=== PATIENT | male | born 1975 | race Caucasian/White ===

== ENCOUNTER 2023-05-26 08:40 | Emergency (ER) | payer BC ==
[2023-05-26] VITALS (7 sets, daily range): BP systolic 125–151; BP diastolic 71–82; PULSE 59–87; RESP 15–27; TEMP 98.5; O2SAT 100
[~2023-05-26] VITALS: Ht 177.8 cm; Wt 77.3 kg
[2023-05-26] MEDS ORDERED: ondansetron/PF 4mg/2ml inj IV PRN ×2 (09:20→11:35)
[2023-05-26] MEDS ORDERED: naloxone 0.4 mg/ml inj IV PRN (09:20)
[2023-05-26] MEDS ORDERED: PCA WASTE DOCUMENTATION 1 MG ML MC PRN (09:20)
[2023-05-26] MEDS ORDERED: HYDROcodone/acetaminophen 10/325mg tab PO PRN ×2 (09:20→13:00)
[2023-05-26] MEDS ORDERED: Potassium Cl inj 20 MEQ in ringers solution, lacted 1,000 ML IV SCH (09:20)
[2023-05-26] MEDS ORDERED: normal saline 1000ML IV soln IVB ONE (09:35)
[2023-05-26] MEDS ORDERED: ondansetron/PF 4mg/2ml inj IV ONE (09:35)
[2023-05-26] MEDS ORDERED: morphine 4 MG/ML inj SYRINge IV ONE (09:35)
[2023-05-26 09:43] LABS: BASOPHILS % (AUTO) 0.3 % (0-1); EOSINOPHILS # (AUTO) 0.1 X10'3 (0-0.9); EOSINOPHILS % (AUTO) 0.9 % (0-6); HEMOGLOBIN 15.7 g/dl (14.0-17.9); LYMPHOCYTES # (AUTO) 0.7 X10'3 (1.1-4.8); MEAN CORPUSCULAR HEMOGLOBIN 30.3 PG (27.0-31.0); MEAN CORPUSCULAR HGB CONC 34.2 g/dL (33.0-36.5); MEAN CORPUSCULAR VOLUME 88.7 FL (78-98); MEAN PLATELET VOLUME 8.4 FL (7.4-10.4); MONOCYTES # (AUTO) 0.6 X10'3 (0-0.9); MONOCYTES % (AUTO) 5.6 % (2-12); NEUTROPHILS # (AUTO) 8.8 X10'3 (1.8-7.7); NEUTROPHILS % (AUTO) 86.2 % (42-75); PLATELET COUNT 167 X10'3 (140-440); RED BLOOD COUNT 5.18 X10'6 (4.70-6.10); RED CELL DISTRIBUTION WIDTH 13.2 % (11.5-14.5); WHITE BLOOD COUNT 10.3 X10'3 (4.5-11.0)
[2023-05-26 10:02] LABS: ALANINE AMINOTRANSFERASE 28 U/L (12-78); ALKALINE PHOSPHATASE 80 IU/L (46-116); ANION GAP 7 (8-16); ASPARTATE AMINO TRANSFERASE 25 U/L (10-37); BILIRUBIN,TOTAL 0.7 MG/DL (0.1-1.0); BLOOD UREA NITROGEN 12 MG/DL (7-18); BUN/CREATININE RATIO 10.7 (10.0-20.0); CALCIUM 9.2 MG/DL (8.5-10.1); CHLORIDE 104 MMOL/L (99-107); CREATININE 1.12 MG/DL (0.60-1.10); GLUCOSE 104 MG/DL (70-104); POTASSIUM 4.1 MMOL/L (3.5-5.1); SODIUM 138 MMOL/L (135-145); TOTAL CARBON DIOXIDE 27.1 MMOL/L (24-32); TOTAL PROTEIN 7.9 G/DL (6.4-8.2); eCRCL 86 ML/MIN; eGFR 71 ML/MIN
[2023-05-26] MEDS ORDERED: BUPIVAcaine 2.5mg/ml inj 50ml vial (contains preservative) ONE (10:45)
[2023-05-26] MEDS ORDERED: dexamethasone sod phosphate 10mg/ml inj ONE (11:00)
[2023-05-26] MEDS ORDERED: desflurane 240ml liquid inh. IH ONE (11:00)
[2023-05-26] MEDS ORDERED: midazolam 1 mg/ML 2ml injection ONE (11:02)
[2023-05-26] MEDS ORDERED: meperidine/PF 50mg/ml syringe ONE (11:02)
[2023-05-26] MEDS ORDERED: LIDOcaine 2% (20mg/ml) 5ml vial ONE (11:12)
[2023-05-26] MEDS ORDERED: neostigmine methylsulfate 1 MG/ML 10ml vial ONE (11:12)
[2023-05-26] MEDS ORDERED: rocuronium 10mg/ml inj IV ONE (11:12)
[2023-05-26] MEDS ORDERED: ondansetron/PF 4mg/2ml inj ONE (11:12)
[2023-05-26] MEDS ORDERED: glycopyrrolate 0.2mg/ml inj ONE (11:12)
[2023-05-26] MEDS ORDERED: propofol inj 20 ML IV ONE (11:12)
[2023-05-26] MEDS ORDERED: ceFAZolin 1000mg inj ONE ×2 (11:13)
[2023-05-26] MEDS ORDERED: BUPIVAcaine 2.5mg/ml inj 50ml vial (contains preservative) IJ ONE (11:21)
[2023-05-26] MEDS ORDERED: hydrALAZINE 20mg/ml inj. IV PRN (11:35)
[2023-05-26] MEDS ORDERED: ringers solution, lacted 1,000 ML IV SCH (11:35)
[2023-05-26] MEDS ORDERED: meperidine/PF 25mg/ml syringe IV PRN ×2 (11:35)
[2023-05-26] MEDS ORDERED: morphine 2 MG/ML inj. syringe IV PRN (11:35)
[2023-05-26] MEDS ORDERED: morphine 4 MG/ML inj SYRINge IV PRN (11:35)
[2023-05-26] MEDS ORDERED: HYDROcodone/acetaminophen 5mg/325mg tablet PO PRN (13:00)
[2023-05-26] MEDS ORDERED: ceFOXitin inj 1,000 MG in normal saline 100ml IV soln 100 ML IV SCH (16:00)
== END 2023-05-26 13:21 | disposition home or self-care (01) ==
LOC: ER 08:41 → ED HOLD 09:25 → ER 13:21
DX: K35.80 Unspecified acute appendicitis (principal)
CPT/HCPCS: 36415; 44970; 80053; 85025; 96361; 96374; 96375; 96376; 99285; J0690; J1100; J2175; J2250; J2270; J2405; J2704; J2710; J3490; J7030; J7120; Z7506; Z7508; Z7512; A4215; A4618; A7000; G0378